=== PATIENT | female | born 1985 | race Caucasian/White ===

== ENCOUNTER 2017-10-17 16:03 | Emergency (ER) | payer SELFPAY ==
--- NOTE | 2017-10-17 16:48 | ER Document Report ---
ED General - General Stated Complaint: POSSIBLE OVERDOSE Time Seen by Provider: 10/17/17 16:46 Notes: 32-year-old female to the emergency department for suicidal ideation and possible overdose. States that she is an alcoholic and needs help. Has been drinking. Decided that it would be easier just to so took a handful of Prozac from her mother. After doing that realize that was stupid. Wants help. Knows that she needs rehab at this time. - HPI Onset: Just prior to arrival - Related Data Allergies/Adverse Reactions: No Known Allergies Allergy (Verified 10/17/17 19:48) Past Medical History - Social History Smoking Status: Current Every Day Smoker Cigarette use (# per day): Yes Frequency of alcohol use: Heavy Drug Abuse: Marijuana Lives with: Family Family History: Reviewed & Not Pertinent Patient has suicidal ideation: Yes Patient has homicidal ideation: No Review of Systems - Review of Systems Constitutional: No symptoms reported EENT: No symptoms reported Cardiovascular: Heart racing Respiratory: No symptoms reported Gastrointestinal: No symptoms reported Genitourinary: No symptoms reported Female Genitourinary: No symptoms reported Musculoskeletal: No symptoms reported Skin: No symptoms reported Hematologic/Lymphatic: No symptoms reported Neurological/Psychological: Depression, Suicidal ideation Physical Exam - Vital signs Vitals: Temp Pulse Resp BP Pulse Ox 98.6 F 79 18 111/81 93 10/17/17 17:02 10/17/17 17:02 10/17/17 17:02 10/17/17 17:02 10/17/17 17:02 Interpretation: Tachycardic - General General appearance: Appears well, Alert - HEENT Head: Normocephalic, Atraumatic Eyes: Normal Pupils: PERRL - Respiratory Respiratory status: No respiratory distress Chest status: Nontender Breath sounds: Normal Chest palpation: Normal - Cardiovascular Rhythm: Tachycardia Heart sounds: Normal auscultation Murmur: No - Abdominal Inspection: Normal Distension: No distension Bowel sounds: Normal Tenderness: Nontender Organomegaly: No organomegaly - Back Back: Normal, Nontender - Extremities General upper extremity: Normal inspection, Nontender, Normal color, Normal ROM , Normal temperature General lower extremity: Normal inspection, Nontender, Normal color, Normal ROM , Normal temperature, Normal weight bearing. No: Regina's sign - Neurological Neuro grossly intact: Yes Cognition: Normal Orientation: AAOx4 [place] Coma Scale Eye Opening: Spontaneous [place] Coma Scale Verbal: Oriented Marlyn Coma Scale Motor: Obeys Commands [place] Coma Scale Total: 15 Speech: Normal Motor strength normal: LUE, RUE, LLE, RLE Sensory: Normal - Psychological Associated symptoms: Normal affect, Normal mood - Skin Skin Temperature: Warm Skin Moisture: Dry Skin Color: Normal Course - Re-evaluation Re-evalutation: 10/17/17 20:41 Get basic psych screening labs at this time. We will give some IV fluids. Will call poison control and reassess. 10/17/17 22:29 Alcohol level in the 300s. Will need to have her clinically sober and be evaluated by mental health in the morning. I have placed patient on a legal hold at this time due to the fact that she admits that alcohol is killing her and she wants help and that she took some pills in an attempt to hurt herself. 10/17/17 22:57 - Vital Signs Vital signs: Temp Pulse Resp BP Pulse Ox 98.3 F 83 16 118/88 H 98 10/17/17 19:40 10/17/17 19:40 10/17/17 19:40 10/17/17 19:40 10/17/17 19:40 - Laboratory Result Diagrams: 10/17/17 06:45 10/17/17 06:45 Laboratory results interpreted by me: 10/17/17 10/17/17 06:45 16:40 AST 87 H Urine Blood SMALL H Salicylates 1.8 L Acetaminophen < 10 L Serum Alcohol 362 H* Discharge - Discharge Clinical Impression: Alcohol intoxication Qualifiers: Complication of substance-induced condition: uncomplicated Qualified Code(s): F10.920 - Alcohol use, unspecified with intoxication, uncomplicated Overdose of antidepressant Qualifiers: Encounter type: initial encounter Injury intent: intentional self-harm Qualified Code(s): T43.202A - Poisoning by unspecified antidepressants, intentional self-harm, initial encounter Condition: Good
[2017-10-17] MEDS ORDERED: RINGERS SOLUTION,LACTATED 1,000 ML IV ONE (17:08)
[2017-10-17] MEDS ORDERED: NICOTINE 21 MG/24 HR PATCH.TD24 TD ONE (17:13)
[2017-10-17 17:15] LABS: ABSOLUTE LYMPHOCYTES (AUTO) 1.4 10^3/uL (0.5-4.7); ABSOLUTE MONOCYTES (AUTO) 0.3 10^3/uL (0.1-1.4); ABSOLUTE NEUT (AUTO) 2.9 10^3/uL (1.7-8.2); BASOPHILS % (AUTO) 0.5 % (0-2); EOSINOPHILS % (AUTO) 0.4 % (0-6); HEMATOCRIT 40.4 % (36.0-47.0); HEMOGLOBIN 13.6 g/dL (12.0-15.5); LYMPHOCYTES % (AUTO) 29.9 % (13-45); MEAN CORPUSCULAR HEMOGLOBIN 31.1 pg (27.0-33.4); MEAN CORPUSCULAR HGB CONC 33.8 g/dL (32.0-36.0); MEAN CORPUSCULAR VOLUME 92 fl (80-97); MONOCYTES % (AUTO) 5.9 % (3-13); PLATELET COUNT 183 10^3/uL (150-450); RED BLOOD COUNT 4.39 10^6/uL (3.72-5.28); RED CELL DISTRIBUTION WIDTH 13.5 % (11.5-14.0); SEGMENTED NEUTROPHILS % (AUTO) 63.3 % (42-78); TOTAL CELLS COUNTED % (AUTO) 100 %; WHITE BLOOD COUNT 4.6 10^3/uL (4.0-10.5)
[2017-10-17 17:33] LABS: ALANINE AMINOTRANSFERASE 41 U/L (9-52); ALBUMIN 4.8 g/dL (3.5-5.0); ALKALINE PHOSPHATASE 62 U/L (38-126); ANION GAP 15 (5-19); ASPARTATE AMINO TRANSFERASE 87 U/L (14-36); BILIRUBIN,DIRECT 0.2 mg/dL (0.0-0.4); BILIRUBIN,TOTAL 0.4 mg/dL (0.2-1.3); BLOOD UREA NITROGEN 10 mg/dL (7-20); CALCIUM 9.4 mg/dL (8.4-10.2); CARBON DIOXIDE 23 mmol/L (22-30); CHLORIDE 106 mmol/L (98-107); GLUCOSE 93 mg/dL (75-110); POTASSIUM 4.4 mmol/L (3.6-5.0); SALICYLATE 1.8 mg/dL (2.0-20.0); SODIUM 144.4 mmol/L (137-145); TOTAL PROTEIN 7.3 g/dL (6.3-8.2)
[2017-10-17 17:44] LABS: APPEARANCE,URINE SLIGHTLY-CLOUDY; BILIRUBIN,URINE NEGATIVE (NEGATIVE); COLOR,URINE STRAW; GLUCOSE, URINE NEGATIVE (NEGATIVE); KETONES,URINE NEGATIVE (NEGATIVE); LEUKOCYTE ESTERASE,URINE NEGATIVE (NEGATIVE); NITRITE,URINE NEGATIVE (NEGATIVE); PROTEIN,URINE NEGATIVE (NEGATIVE); URINE SPECIFIC GRAVITY 1.003; UROBILINOGEN,URINE NEGATIVE mg/dL (<2.0)
[2017-10-17 17:52] LABS: ACETAMINOPHEN < 10 ug/mL (10-30)
[2017-10-17 17:54] LABS: ALCOHOL 362 mg/dL (NONE DETECTED)
[2017-10-17 17:59] LABS: URINE AMPHETAMINES SCREEN NEGATIVE; URINE BARBITURATES SCREEN NEGATIVE; URINE BENZODIAZEPINES SCREEN NEGATIVE; URINE COCAINE SCREEN NEGATIVE; URINE MARIJUANA (THC) SCREEN NEGATIVE; URINE METHADONE SCREEN NEGATIVE; URINE PHENCYCLIDINE SCREEN NEGATIVE
[2017-10-17] MEDS ORDERED: LORAZEPAM 1 MG TABLET PO ONE (20:43)
[2017-10-17] MEDS ORDERED: LORAZEPAM INJ 2 MG/1 ML VIAL IV PRN (23:31)
[2017-10-18 08:16] VITALS: BP 124/98
--- NOTE | 2017-10-18 10:09 | PSYCHOLOGICAL NOTE ---
Psych Note - Psych Note Psych Note: Reason for Consult: Suicidal ideation/ Alcohol Abuse Consent Permissions: Natalee Freeman, mother, 32-year-old female to the emergency department for suicidal ideation and possible overdose. States that she is an alcoholic and needs help. Has been drinking. Decided that it would be easier just to so took a handful of Prozac from her mother. After doing that realize that was stupid. Wants help. Knows that she needs rehab at this time. Patient disclosed that she has been drinking for years now. She disclosed that "it scares me to stop without being watched." She reports that in the past she did have one episode of having seizure however she was still under the influence at the time of the seizure. Patient denies any difficulties during current [facility] ED visit. She disclosed that she had recently moved in with her mother in attempt to stop drinking and for few months it worked however on the last 2 weeks or so "I have been on a matthews drinking wine beer or hard liquor every moment I have been awake." She disclosed "when I go to [place] I start hanging out with a bad crowd and cannot seem to stop myself from drinking. " Patient states that she does have some depression however is unsure if this is from her drinking. Her current plan is to achieve sobriety by staying with her mom, staying away from [place] and other friends that she would normally drink with, and receive substance abuse treatment. Patient denies wanting to hurt herself stating she knew immediately when she took her mother's medication that it was the wrong thing to do; she made herself throw up and called for assistance. Patient states that at the moment she was feeling that she could never achieve sobriety. She denies continued suicidal ideations stating that she just has a goal of becoming sober. Patient's mother, Natalee, disclosed the patient now lives with her. She agrees to be part of the patient's discharge plan and encouraging the patient for continued sobriety. She agrees to take steps in order to ensure the patient does not have access to medications or weapons. Clinician discussed with patient's mother struggles of family members of those trying to obtain sobriety. Patient is alert and orientated to person, place, time and circumstance. Mood is euthymic with congruent affect. Patient does verbalize some nervousness about staying successfully sober. Psychosocial sober sobriety sobriety patient denies suicidal and homicidal ideation. Delusions are absent and behaviors congruent with intact reality based presentation i.e. organized, linear, rational thinking. Eye contact was well-maintained. Conversational speech was within normal rate, tone and prosody. Intellectual abilities appear to be within the average range. Attention and concentration are good. Insight, judgment, impulse control are fair. 303.90 (F10.20) alcohol use disorder; moderate Impression\\plan: Patient is recommended for rescind of IVC and is considered psychiatrically clear. Patient no longer meets IVC criteria per [place] GS 122C. Patient is no longer under the influence of alcohol. Patient denies suicidal and homicidal ideation. Delusions are absent and behaviors congruent with intact reality based presentation i.e. organized, linear, rational thinking. Patient identified plan to achieve sobriety by staying with her mom, staying away from [place] and other friends that she would normally drink with, and receive substance abuse treatment. Patient conducted phone interview with the [facility]; currently there are no beds. Patient received information packet for substance abuse treatment which include both inpatient and outpatient resources. Patient's mother agrees to be part of patient's discharge plan to ensure patient does not have access to medications or weapons and encourages the patient to follow through with substance abuse treatment. Dr. Carbone was consulted and the care and management of this patient; attending physician is in agreement with recommendations and disposition.
--- NOTE | 2017-10-19 11:54 | EKG REPORT ---
SEVERITY:- BORDERLINE ECG - SINUS RHYTHM LOW VOLTAGE WITH RIGHT AXIS DEVIATION : Confirmed by: Isela Santos MD 19-Oct-2017 11:53:24
== END 2017-10-18 11:45 | disposition home or self-care (01) ==
LOC: ER 16:03
DX: F10.920 Alcohol use, unspecified with intoxication, uncomplicated (principal); Y90.8 Blood alcohol level of 240 mg/100 ml or more; T43.202A Poisoning by unspecified antidepressants, intentional self-harm, initial encounter; F17.210 Nicotine dependence, cigarettes, uncomplicated; R00.0 Tachycardia, unspecified
CPT/HCPCS: 93005; 99285; 96365; 36415; 80307 ×4; 84702; 85025; 80053; 81001; 93010; J2060; J7120

== ENCOUNTER 2017-11-18 11:22 | Emergency (ER) | payer SELFPAY ==
[2017-11-18] MEDS ORDERED: IBUPROFEN 800 MG TABLET PO ONE (11:55)
--- NOTE | 2017-11-18 11:58 | ER Document Report ---
HPI - HPI Patient complains to provider of: Arm injury Onset: Other - 2 days ago Onset/Duration: Persistent Quality of pain: Achy Pain Level: 5 Context: Patient states that she fell multiple times while roller skating 2 days ago. Patient complains of continued right arm discomfort. Patient complains of inability to flex her elbow due to pain. Patient states that she has been attempting to manage her pain symptoms by drinking alcohol today. Associated Symptoms: Other - Right arm pain. denies: Fever Exacerbated by: Movement Relieved by: Denies Similar symptoms previously: No Recently seen / treated by doctor: No - ROS ROS below otherwise negative: Yes Systems Reviewed and Negative: Yes All other systems reviewed and negative - CONSTITUTIONAL Constitutional: DENIES: Fever - NEURO Neurology: DENIES: Headache, Weakness - GASTROINTESTINAL Gastrointestinal: DENIES: Nausea - MUSCULOSKELETAL Musculoskeletal: REPORTS: Extremity pain. DENIES: Back Pain - DERM Skin Color: Normal Past Medical History - General Information source: Patient - Social History Smoking Status: Current Every Day Smoker Smoking Education Provided: Yes Frequency of alcohol use: Heavy Drug Abuse: None Occupation: none Lives with: Family Family History: Reviewed & Not Pertinent Neurological Medical History: Reports: Hx Seizures - during withdrawal Renal/ Medical History: Denies: Hx Peritoneal Dialysis Surgical Hx: Negative Vertical Provider Document - CONSTITUTIONAL Agree With Documented VS: Yes Exam Limitations: No Limitations General Appearance: WD/WN, No Apparent Distress Notes: Patient with slightly slurred speech and heavy lidded eyes - INFECTION CONTROL TRAVEL OUTSIDE OF THE [place] IN LAST 30 DAYS: No - HEENT HEENT: Atraumatic, Normocephalic - NECK Neck: Normal Inspection, Supple - RESPIRATORY Respiratory: Breath Sounds Normal, No Respiratory Distress, Chest Non-Tender - CARDIOVASCULAR Cardiovascular: Regular Rate, Regular Rhythm, No Murmur Pulses: Normal: Radial - BACK Back: Normal Inspection - MUSCULOSKELETAL/EXTREMETIES Musculoskeletal/Extremeties: Tender - Tenderness with palpation of entire right upper extremity from upper arm distally. Patient with mild swelling about her right elbow. Patient with decreased flexion to right elbow., Edema - Right elbow - NEURO Level of Consciousness: Awake Motor/Sensory: No Motor Deficit - DERM Integumentary: Warm, Dry, No Rash Course - Re-evaluation Re-evalutation: 11/18/17 11:58 Patient does admit to drinking alcohol today in an attempt to manage her pain symptoms. 11/18/17 13:32 Patient continues hypotensive. Patient repeatedly asking for pain medication. Patient advised that no narcotics would be given at this time given her alcohol intake this morning as well as her hypotension. Patient agreeable to IV fluids at this time. - Diagnostic Test Radiology reviewed: Image reviewed, Reports reviewed Procedures - Immobilization Right Elbow Pre-Proc Neuro Vasc Exam: Normal Immobilizer type: Long arm posterior, Sling Performed by: PCT Post-Proc Neuro Vasc Exam: Normal Alignment checked and good: Yes Discharge - Discharge Clinical Impression: Fall Qualifiers: Encounter type: initial encounter Qualified Code(s): W19.XXXA - Unspecified fall, initial encounter Radial head fracture Qualifiers: Encounter type: initial encounter Fracture type: closed Fracture alignment: nondisplaced Laterality: right Qualified Code(s): S52.124A - Nondisplaced fracture of head of right radius, initial encounter for closed fracture Condition: Stable Disposition: HOME, SELF-CARE Instructions: Ice & Elevation ([facility]), Oral Narcotic Medication ([facility]), Radial Head Fracture ([facility]), Splint Precautions ([facility]), Temporary Sling ([facility]) Additional Instructions: Return immediately for any new or worsening symptoms Followup with your primary care provider, call tomorrow to make a followup appointment Follow-up with orthopedic doctor for further evaluation, call today to make a follow-up appointment Prescriptions: Acetaminophen with Codeine [Acetaminophen-Cod #3 Tablet] 1 each PO Q6 PRN #12 tablet PRN Reason: Forms: Smoking Cessation Education Referrals: [facility] [Provider Group] - Follow up tomorrow
--- NOTE | 2017-11-18 12:40 | RADIOLOGY REPORT (SQ) ---
EXAM DESCRIPTION: HUMERUS RIGHT COMPLETED DATE/TIME: 11/18/2017 12:27 pm REASON FOR STUDY: fall COMPARISON: None. NUMBER OF VIEWS: Two views. TECHNIQUE: Two radiographic images were acquired of the right humerus to include elbow and shoulder in at least one projection. LIMITATIONS: None. FINDINGS: MINERALIZATION: Normal. BONES: No acute fracture or dislocation. No worrisome bone lesions. SOFT TISSUES: No obvious swelling or foreign body. OTHER: No other significant finding. IMPRESSION: NEGATIVE STUDY OF THE RIGHT HUMERUS. NO RADIOGRAPHIC EVIDENCE OF ACUTE INJURY. TECHNICAL DOCUMENTATION: JOB ID: [id number] [employer]- All Rights Reserved Reading location - IP/workstation name: [email or web address]
--- NOTE | 2017-11-18 12:42 | RADIOLOGY REPORT (SQ) ---
EXAM DESCRIPTION: ELBOW RIGHT OVER 2 VIEWS COMPLETED DATE/TIME: 11/18/2017 12:27 pm REASON FOR STUDY: fall COMPARISON: None. NUMBER OF VIEWS: Four views. TECHNIQUE: AP, lateral, and both oblique radiographic images acquired of the right elbow. LIMITATIONS: None. FINDINGS: MINERALIZATION: Normal. BONES: Possible minimal interruption of the cortex of the radial head on 1 of the 2 oblique views. JOINT: Joint effusion. SOFT TISSUES: No soft tissue swelling. No foreign body. OTHER: No other significant finding. IMPRESSION: Joint effusion. Possible faint nondisplaced fracture of the radial head. See above dis cussion. TECHNICAL DOCUMENTATION: JOB ID: [id number] [employer]- All Rights Reserved Reading location - IP/workstation name: [email or web address]
--- NOTE | 2017-11-18 12:43 | RADIOLOGY REPORT (SQ) ---
EXAM DESCRIPTION: FOREARM RIGHT COMPLETED DATE/TIME: 11/18/2017 12:27 pm REASON FOR STUDY: fall COMPARISON: None. NUMBER OF VIEWS: Two views. TECHNIQUE: Two radiographic images acquired of the right forearm, including elbow and wrist in at le ast one projection. LIMITATIONS: None. FINDINGS: MINERALIZATION: Normal. BONES: No acute fracture. No worrisome bone lesions. SOFT TISSUES: No obvious swelling or foreign body. OTHER: No other significant finding. IMPRESSION: NEGATIVE STUDY OF THE RIGHT FOREARM. NO RADIOGRAPHIC EVIDENCE OF ACUTE INJURY. TECHNICAL DOCUMENTATION: JOB ID: [id number] [employer]- All Rights Reserved Reading location - IP/workstation name: [email or web address]
--- NOTE | 2017-11-18 12:43 | RADIOLOGY REPORT (SQ) ---
EXAM DESCRIPTION: HAND RIGHT 3 VIEWS COMPLETED DATE/TIME: 11/18/2017 12:27 pm REASON FOR STUDY: fall COMPARISON: None. EXAM PARAMETERS: NUMBER OF VIEWS: Three views. TECHNIQUE: AP, lateral and oblique radiographic images acquired of the right hand. LIMITATIONS: None. FINDINGS: MINERALIZATION: Normal. BONES: No acute fracture or dislocation. No worrisome bone lesions. JOINTS: No effusions. SOFT TISSUES: No soft tissue swelling. No foreign body. OTHER: No other significant finding. IMPRESSION: NEGATIVE STUDY OF THE RIGHT HAND. NO RADIOGRAPHIC EVIDENCE OF ACUTE INJURY. TECHNICAL DOCUMENTATION: JOB ID: [id number] [employer]- All Rights Reserved Reading location - IP/workstation name: [email or web address]
[2017-11-18] MEDS ORDERED: NORMAL SALINE 1000 ML 1,000 ML IV ONE (13:29)
[2017-11-18] MEDS ORDERED: ACETAMINOPHEN 325 MG TABLET PO ONE (13:31)
[2017-11-18 16:07] VITALS: BP 100/67
== END 2017-11-18 16:07 | disposition home or self-care (01) ==
LOC: ER 11:22
DX: S52.124A Nondisplaced fracture of head of right radius, initial encounter for closed fracture (principal); V00.121A Fall from non-in-line roller-skates, initial encounter; Y93.51 Activity, roller skating (inline) and skateboarding; I95.9 Hypotension, unspecified; F17.210 Nicotine dependence, cigarettes, uncomplicated
CPT/HCPCS: 29105; 99283; 96360; 73080; 73090; 73130; 73060; J7030

== ENCOUNTER 2017-11-24 09:23 | Inpatient (IN) | payer SELFPAY ==
[2017-11-24] MEDS ORDERED: NORMAL SALINE 1000 ML 1,000 ML IV ONE (09:34)
--- NOTE | 2017-11-24 09:43 | ER Document Report ---
ED General - General Stated Complaint: POSSIBLE OVERDOSE Time Seen by Provider: 11/24/17 09:27 TRAVEL OUTSIDE OF THE [place].S. IN LAST 30 DAYS: No - HPI Patient complains to provider of: Tylenol PM, alcohol, marijuana, opiate overdose Notes: 32-year-old female presents altered mental status. Found by her sister this morning to be drinking alcohol, taking prescription pain medicine, smoking marijuana. Sister saw her take a handful of Tylenol PM. Unknown quantity. Her handholds approximately 20 pills. Some fell on the floor. Each pill is 500 mg acetaminophen, 25 mg diphenhydramine. - Related Data Allergies/Adverse Reactions: No Known Allergies Allergy (Verified 11/18/17 11:22) Past Medical History - Social History Smoking Status: Unknown if Ever Smoked Family History: Reviewed & Not Pertinent Neurological Medical History: Reports: Hx Seizures - during withdrawal Renal/ Medical History: Denies: Hx Peritoneal Dialysis Review of Systems - Review of Systems -: Yes ROS unobtainable due to patient's medical condition Physical Exam - Vital signs Vitals: Resp Pulse Ox 25 H 97 11/24/17 09:33 11/24/17 09:33 Interpretation: Tachycardic, Tachypneic - General General appearance: Lethargic - HEENT Head: Normocephalic, Atraumatic Eyes: Normal Pupils: PERRL - Respiratory Respiratory status: No respiratory distress Chest status: Nontender Breath sounds: Normal Chest palpation: Normal - Cardiovascular Rhythm: Tachycardia Heart sounds: Normal auscultation Murmur: No - Abdominal Inspection: Normal Distension: No distension Bowel sounds: Normal Tenderness: Nontender Organomegaly: No organomegaly - Back Back: Normal, Nontender - Extremities General upper extremity: Normal inspection, Nontender, Normal color, Normal ROM , Normal temperature General lower extremity: Normal inspection, Nontender, Normal color, Normal ROM , Normal temperature, Normal weight bearing. No: Regina's sign - Neurological Cognition: Other - Patient somnolent Marlyn Coma Scale Eye Opening: Spontaneous Marlyn Coma Scale Verbal: Incomprehensible Speech: Normal Sensory: Normal - Psychological Associated symptoms: Normal affect, Normal mood - Skin Skin Temperature: Warm Skin Moisture: Dry Skin Color: Normal Course - Re-evaluation Re-evalutation: 11/24/17 09:54 Critically ill female presents after apparent Tylenol PM overdose. Patient has lengthy history of drug abuse. Had recent arm fracture 1 week ago was given some outpatient analgesia. Splint still in place. Patient found by her sister altered this morning intoxicated to the handful Tylenol PM. 35 minutes prior to arrival. Upon presentation the emergency department IV established. NG tube placed. Flush with saline and put to suction. Returns blue pill fragments. These fragments match the Tylenol PM bottle provided by the sister. Patient mildly tachycardic maintaining her airway oxygen saturations 98%. Multiple labs drawn including acetaminophen, salicylates A levels. We are at time 1 hour. Will be rechecked in 3 hours. EKG shows normal QRS., Physical exam very somnolent patient, no clonus. No rigidity. 11/24/17 10:12 Mother arrives bedside. States her daughter has been alcoholic for years and have the last week. Has history of attention seeking behavior no real suicidal ideation. 11/24/17 11:15 Critically ill patient. Initially told Tylenol ingestion for about 35 minutes prior to arrival. Patient's initial acetaminophen level 249. I suspicion patient was drinking alcohol and taking acetaminophen throughout the night. Emergently start N-acetylcysteine therapy. Contact patient for admission ICU, patient will need emergent dialysis. - Vital Signs Vital signs: Temp Pulse Resp BP Pulse Ox 95.6 F L 25 H 110/76 97 11/24/17 11:22 11/24/17 10:01 11/24/17 10:01 11/24/17 10:01 - Laboratory Result Diagrams: 11/24/17 08:55 11/24/17 08:55 Laboratory results interpreted by me: 11/24/17 11/24/17 08:55 08:55 Seg Neuts % (Manual) 36 L Lymphocytes % (Manual) 50 H Abs Lymphs (Manual) 5.9 H Anion Gap 23 H Glucose 168 H Direct Bilirubin 0.5 H AST 59 H Salicylates < 1.0 L Acetaminophen 249 H* Serum Alcohol 471 H* - EKG Interpretation by Me Additional EKG results interpreted by me: 11/24/17 10:19 Sinus tachycardia 120 bpm, normal DC, normal QRS, no ST elevations or depressions. Critical Care Note - Critical Care Note Total time excluding time spent on procedures (mins): 39 Comments: Echocardiogram, bedside management, multiple EKGs, need for dialysis, ICU admission. Discharge - Discharge Clinical Impression: Overdose by acetaminophen Qualifiers: Encounter type: initial encounter Injury intent: intentional self-harm Qualified Code(s): T39.1X2A - Poisoning by 4-Aminophenol derivatives, intentional self-harm, initial encounter Condition: Critical Disposition: ADMITTED INPATIENT Admitting Provider: Hospitalist - [facility] Admitted: ICU
[2017-11-24] MEDS ORDERED: PHARMACY COMMUNICATION ORDER MC NR (09:45)
[2017-11-24 10:16] LABS: ALANINE AMINOTRANSFERASE 44 U/L (9-52); ALKALINE PHOSPHATASE 60 U/L (38-126); ASPARTATE AMINO TRANSFERASE 59 U/L (14-36); BILIRUBIN,DIRECT 0.5 mg/dL (0.0-0.4); BILIRUBIN,TOTAL 0.6 mg/dL (0.2-1.3); BLOOD UREA NITROGEN 14 mg/dL (7-20); CALCIUM 8.6 mg/dL (8.4-10.2); CARBON DIOXIDE 22 mmol/L (22-30); GLUCOSE 168 mg/dL (75-110); POTASSIUM 4.3 mmol/L (3.6-5.0); SALICYLATE < 1.0 mg/dL (2.0-20.0); TOTAL PROTEIN 7.9 g/dL (6.3-8.2)
[2017-11-24 10:20] LABS: CHLORIDE 99 mmol/L (98-107); HEMATOCRIT 43.8 % (36.0-47.0); HEMOGLOBIN 14.8 g/dL (12.0-15.5); MEAN CORPUSCULAR HEMOGLOBIN 31.2 pg (27.0-33.4); MEAN CORPUSCULAR HGB CONC 33.7 g/dL (32.0-36.0); MEAN CORPUSCULAR VOLUME 93 fl (80-97); PLATELET COUNT 303 10^3/uL (150-450); RED BLOOD COUNT 4.72 10^6/uL (3.72-5.28); SODIUM 144.2 mmol/L (137-145); WHITE BLOOD COUNT 9.8 10^3/uL (4.0-10.5)
[2017-11-24 10:35] LABS: ANION GAP 23 (5-19)
[2017-11-24 10:39] LABS: ACETAMINOPHEN 249 ug/mL (10-30); ALCOHOL 471 mg/dL (NONE DETECTED)
--- NOTE | 2017-11-24 10:41 | RADIOLOGY REPORT (SQ) ---
EXAM DESCRIPTION: KUB/ABDOMEN (SINGLE VIEW) COMPLETED DATE/TIME: 11/24/2017 10:21 am REASON FOR STUDY: Check Placement of NG Tube COMPARISON: None. TECHNIQUE: AP view of the lower thorax and upper abdomen LIMITATIONS: None. FINDINGS: NG tube is identified with its tip in the left upper quadrant presumably in the proximal p ortion of the stomach. The a nonspecific intestinal bowel gas pattern is seen. IMPRESSION: NG tube with its tip in the left upper quadrant presumably in the proximal portion of th e stomach. Other findings as noted above TECHNICAL DOCUMENTATION: JOB ID: [id number] [employer]- All Rights Reserved Reading location - IP/workstation name: [email or web address]
[2017-11-24 11:14] LABS: ABSOLUTE LYMPHOCYTES# (MANUAL) 5.9 10^3/uL (0.5-4.7); ABSOLUTE MONOCYTES # (MANUAL) 0.3 10^3/uL (0.1-1.4); ABSOLUTE NEUTROPHILS# (MANUAL) 3.5 10^3/uL (1.7-8.2); BASOPHILS % (MANUAL) 0 % (0-2); EOSINOPHILS % (MANUAL) 1 % (0-6); LYMPHOCYTES % (MANUAL) 50 % (13-45); MONOCYTES % (MANUAL) 3 % (3-13); SEGMENTED NEUTROPHILS % (MAN) 36 % (42-78); TOTAL CELLS COUNTED 100
[2017-11-24 11:15] LABS: PLATELET COMMENT ADEQUATE; POLYCHROMASIA SLIGHT; TOXIC GRANULATION 2+
[2017-11-24] MEDS ORDERED: ACETYLCYSTEINE INJ 6000 MG/30 ML IV ONE ×3 (11:30→15:15)
[2017-11-24] MEDS ORDERED: WATER IV ONE (11:30)
[2017-11-24] MEDS ORDERED: DEXTROSE 5% IV ONE (11:30)
[2017-11-24] MEDS ORDERED: ACETYLCYSTEINE IV ONE (11:30)
[2017-11-24 11:43] LABS: APPEARANCE,URINE CLEAR; BILIRUBIN,URINE NEGATIVE (NEGATIVE); COLOR,URINE YELLOW; GLUCOSE, URINE NEGATIVE (NEGATIVE); KETONES,URINE TRACE mg/dL (NEGATIVE); LEUKOCYTE ESTERASE,URINE NEGATIVE (NEGATIVE); NITRITE,URINE NEGATIVE (NEGATIVE); PROTEIN,URINE NEGATIVE (NEGATIVE); UROBILINOGEN,URINE NEGATIVE mg/dL (<2.0)
[2017-11-24 12:06] LABS: URINE AMPHETAMINES SCREEN NEGATIVE; URINE BARBITURATES SCREEN NEGATIVE; URINE BENZODIAZEPINES SCREEN NEGATIVE; URINE COCAINE SCREEN NEGATIVE; URINE MARIJUANA (THC) SCREEN NEGATIVE; URINE METHADONE SCREEN NEGATIVE; URINE PHENCYCLIDINE SCREEN NEGATIVE
[2017-11-24] MEDS ORDERED: DEXTROSE 50%-WATER 25 GM/50 ML DISP.SYRIN IV PRN ×2 (13:28)
[2017-11-24] MEDS ORDERED: DEXTROSE 40% GEL 15 GM TUBE PO PRN ×2 (13:28)
[2017-11-24] MEDS ORDERED: GLUCAGON,HUMAN RECOMB 1 MG INJ SUBCUT PRN (13:28)
[2017-11-24] MEDS: DEXTROSE 5%-NORMAL SALINE 1,000 ML IV PRN (14:07)
--- NOTE | 2017-11-24 14:17 | PDOC H&P ---
History of Present Illness Admission Date/PCP: 11/24/17 11:36 Patient complains of: Unresponsive History of Present Illness: FRANCIS BECKER is a 32 year old female with history of depression, possible bipolar disorder per her mother who is at bedside. Patient was brought in for unresponsiveness. She lives with her sister. Apparently she had been drinking a lot of alcohol all night and took several Tylenol PM. In the ED she was found to have elevated Tylenol level of 249. LFTs normal so far. It was thought patient must have been taking the Tylenol all night and drinking alcohol. Alcohol level by presentation 471. She was treated with emergently start N-acetylcysteine therapy. Also treated with IV fluid bolus. She was referred for admission. Patient currently unresponsive but appears comfortable , mother at bedside and most of the history obtained from her and the ED physician. Past Medical History Psychiatric Medical History: Reports: Alcohol Dependency, Depression Social History Information Source: Parent Lives with: Family Smoking Status: Current Every Day Smoker Frequency of Alcohol Use: Heavy - Advance Directive Resuscitation Status: Full Code Family History Family History: Bipolar disorder Parental Family History Reviewed: Yes Children Family History Reviewed: No Sibling(s) Family History Reviewed.: Unknown Medication/Allergy Home Medications: Hydroxyzine Pamoate [Vistaril 50 mg Capsule] 50 mg PO QIDP PRN #8 capsule Acetaminophen with Codeine [Acetaminophen-Cod #3 Tablet] 1 each PO Q6 PRN #12 tablet 11/18/17 Allergies/Adverse Reactions: No Known Allergies Allergy (Verified 11/18/17 11:22) Review of Systems ROS unobtainable: Due to mental status Physical Exam Vital Signs: Temp Pulse Resp BP Pulse Ox 96.8 F L 25 H 110/76 97 11/24/17 13:34 11/24/17 10:01 11/24/17 10:01 11/24/17 10:01 GENERAL: Well-developed, no acute distress, unresponsive HEENT: Normocephalic/atraumatic NECK supple, no JVD CARDIOVASCULAR: Tachycardic, normal S1-S2, no appreciable murmur LUNGS: Tachypneic, CTA bilaterally ABDOMEN: Soft, NT, NL bowel sounds EXTREMITIES: No edema, clubbing, cyanosis NEUROLOGICAL: Unresponsive Results Laboratory Results: 11/24/17 11/24/17 08:55 08:55 Seg Neuts % (Manual) 36 L Lymphocytes % (Manual) 50 H Abs Lymphs (Manual) 5.9 H Anion Gap 23 H Glucose 168 H Direct Bilirubin 0.5 H AST 59 H Salicylates < 1.0 L Acetaminophen 249 H* Serum Alcohol 471 H* Impressions: KUB X-Ray 11/24/17 09:38 IMPRESSION: NG tube with its tip in the left upper quadrant presumably in the proximal portion of the stomach. Other findings as noted above Assessment & Plan - Diagnosis (1) Overdose by acetaminophen Qualifiers: Encounter type: initial encounter Injury intent: undetermined intent Qualified Code(s): T39.1X4A - Poisoning by 4-Aminophenol derivatives, undetermined, initial encounter Is this a current diagnosis for this admission?: Yes Plan: Will admit to ICU. Continue Mucomyst. Continue IV fluids with D5NS. I spoke with publications manager Dr. Wright about need for emergent dialysis, but she states N-acetylcysteine therapy is the mainstay of therapy, that dialysis is only indicated if that was not available. Follow serial Tylenol levels, LFTs. Poison control to follow. (2) Alcohol abuse Is this a current diagnosis for this admission?: Yes Plan: We need echo cessation counseling and rehab. (3) Depression Is this a current diagnosis for this admission?: Yes Plan: Patient will need evaluation by mental health when she is awake and acute medical emergency is stabilized. - Inpatient Certification Medical Necessity: Need Close Monitoring Due to Risk of Patient Decompensation, Need For IV Fluids, Need For Continuous Telemetry Monitoring
[2017-11-24] MEDS ORDERED: LORAZEPAM INJ 2 MG/1 ML VIAL IV ONE ×2 (15:02→16:44)
--- NOTE | 2017-11-24 21:47 | EKG REPORT ---
SEVERITY:- BORDERLINE ECG - SINUS TACHYCARDIA LOW VOLTAGE WITH RIGHT AXIS DEVIATION BORDERLINE T ABNORMALITIES, INFERIOR LEADS : Confirmed by: Len Loja 24-Nov-2017 21:46:22
--- NOTE | 2017-11-24 21:47 | EKG REPORT ---
SEVERITY:- BORDERLINE ECG - SINUS TACHYCARDIA LOW VOLTAGE WITH RIGHT AXIS DEVIATION BORDERLINE T ABNORMALITIES, INFERIOR LEADS : Confirmed by: Len Loja 24-Nov-2017 21:46:38
[2017-11-25] MEDS ORDERED: INFLUENZA ADLT QUAD (36MOS+) 2017-18 VAC 0.5 ML SYR IM PRN (00:44)
[2017-11-25 04:13] LABS: INTERNATIONAL RATION (INR) 1.14; PROTHROMBIN TIME 15.4 SEC (11.4-15.4)
[2017-11-25 04:14] LABS: PARTIAL THROMBOPLASTIN TIME 31.5 SEC (23.5-35.8)
[2017-11-25 04:17] LABS: ABSOLUTE LYMPHOCYTES (AUTO) 1.9 10^3/uL (0.5-4.7); ABSOLUTE MONOCYTES (AUTO) 0.3 10^3/uL (0.1-1.4); ABSOLUTE NEUT (AUTO) 9.3 10^3/uL (1.7-8.2); BASOPHILS % (AUTO) 0.2 % (0-2); EOSINOPHILS % (AUTO) 0.1 % (0-6); HEMATOCRIT 35.6 % (36.0-47.0); LYMPHOCYTES % (AUTO) 16.6 % (13-45); MEAN CORPUSCULAR HEMOGLOBIN 31.2 pg (27.0-33.4); MEAN CORPUSCULAR HGB CONC 34.1 g/dL (32.0-36.0); MEAN CORPUSCULAR VOLUME 91 fl (80-97); MONOCYTES % (AUTO) 2.6 % (3-13); PLATELET COUNT 160 10^3/uL (150-450); RED CELL DISTRIBUTION WIDTH 13.8 % (11.5-14.0); SEGMENTED NEUTROPHILS % (AUTO) 80.5 % (42-78); TOTAL CELLS COUNTED % (AUTO) 100 %; WHITE BLOOD COUNT 11.6 10^3/uL (4.0-10.5)
[2017-11-25 04:19] LABS: HEMOGLOBIN 12.2 g/dL (12.0-15.5)
[2017-11-25 04:24] LABS: ALANINE AMINOTRANSFERASE 42 U/L (9-52); ALBUMIN 3.6 g/dL (3.5-5.0); ALKALINE PHOSPHATASE 40 U/L (38-126); ANION GAP 10 (5-19); ASPARTATE AMINO TRANSFERASE 91 U/L (14-36); BILIRUBIN,DIRECT 0.4 mg/dL (0.0-0.4); BILIRUBIN,TOTAL 0.8 mg/dL (0.2-1.3); BLOOD UREA NITROGEN 5 mg/dL (7-20); CALCIUM 7.2 mg/dL (8.4-10.2); CARBON DIOXIDE 24 mmol/L (22-30); CHLORIDE 107 mmol/L (98-107); GLUCOSE 169 mg/dL (75-110); SODIUM 140.6 mmol/L (137-145)
[2017-11-25 04:33] LABS: POTASSIUM 2.9 mmol/L (3.6-5.0)
[2017-11-25] MEDS ORDERED: POTASSIUM CHLORIDE 20 MEQ/15 ML UDCUP NG ONE (05:30)
[2017-11-25] MEDS: DEXTROSE 5%-NORMAL SALINE 1,000 ML IV PRN ×2 (05:32→17:28)
[2017-11-25] MEDS: POTASSIUM CHLORIDE 20 MEQ/50 ML RTU IV SCH ×2 (05:33→07:55)
[2017-11-25] MEDS ORDERED: LORAZEPAM INJ 2 MG/1 ML VIAL IV PRN (08:44)
[2017-11-25] MEDS: NICOTINE 21 MG/24 HR PATCH.TD24 TD SCH (09:15)
[2017-11-25] MEDS: ENOXAPARIN SODIUM INJ 40 MG/0.4 ML DISP.SYRIN SUBCUT SCH (09:17)
--- NOTE | 2017-11-25 11:38 | PDOC PROGRESS REPORT ---
Subjective Progress Note for:: 11/25/17 Subjective:: Now awake. States she was not trying to kill herself. States she was just depressed, getting drunk and being "stupid." States she just recently broke up with a boyfriend. Reports visual hallucinations. Has had a history of alcohol withdrawal in the past with seizure. Denies chest pain or shortness of breath at this time, no palpitations, no fever or chills. Denies cough or hemoptysis. Denies suicidal homicidal ideation. Reason For Visit: TYLENOL OVERDOSE Physical Exam Vital Signs: Temp Pulse Resp BP Pulse Ox 98.5 F 80 14 107/76 97 11/25/17 08:00 11/25/17 08:55 11/25/17 06:40 11/25/17 06:40 11/25/17 06:40 Intake & Output 11/24/17 11/25/17 11/26/17 06:59 06:59 06:59 Intake Total 1303 200 Output Total 1875 360 Balance -572 -160 Weight 54.3 kg GEN: NAD, well-developed, well-nourished CV: RRR, NL S1S2 LUNGS: CTA bilaterally ABDOMEN Soft, NT, +BS EXTERMITIES: No e/c/c NEURO: Alert, oriented 3, non-focal Results Laboratory Results: 11/25/17 03:59 11/25/17 03:59 11/25/17 11/25/17 11/25/17 03:59 03:59 03:59 WBC 11.6 H RBC 3.90 Hgb 12.2 D Hct 35.6 L MCV 91 MCH 31.2 MCHC 34.1 RDW 13.8 Plt Count 160 Seg Neutrophils % 80.5 H Lymphocytes % 16.6 Monocytes % 2.6 L Eosinophils % 0.1 Basophils % 0.2 Absolute Neutrophils 9.3 H Absolute Lymphocytes 1.9 Absolute Monocytes 0.3 Absolute Eosinophils 0.0 Absolute Basophils 0.0 Sodium 140.6 Potassium 2.9 L* D Chloride 107 Carbon Dioxide 24 Anion Gap 10 BUN 5 L Creatinine 0.54 Est GFR ( Amer) > 60 Est GFR (Non-Af Amer) > 60 Glucose 169 H Calcium 7.2 L Magnesium 1.3 L Total Bilirubin 0.8 AST 91 H ALT 42 Alkaline Phosphatase 40 Total Protein 6.0 L Albumin 3.6 Impressions: KUB X-Ray 11/24/17 09:38 IMPRESSION: NG tube with its tip in the left upper quadrant presumably in the proximal portion of the stomach. Other findings as noted above Assessment & Plan - Diagnosis (1) Overdose by acetaminophen Qualifiers: Encounter type: subsequent encounter Injury intent: undetermined intent Qualified Code(s): T39.1X4D - Poisoning by 4-Aminophenol derivatives, undetermined, subsequent encounter Is this a current diagnosis for this admission?: Yes Plan: Will continue to monitor at the ICU for now, as Tylenol levels still elevated at 249. By last night around the heart continue to climb to continue 319, for now trending back down to 249. Continue IV fluids with D5NS and N- acetylcysteine therapy. She is also receiving IV potassium for hypokalemia. Of note is that I spoke with milk of lime slaker Dr. Wright yesterday about need for emergent hemodialysis, but she stated N-acetylcysteine therapy is the mainstay of therapy, that dialysis is only indicated if that was not available. She did not believe patient needed hemodialysis. We will continue to follow serial Tylenol levels, LFTs. Poison control to continue to follow patient's--their recommendations appreciated. (2) Alcohol abuse Is this a current diagnosis for this admission?: Yes Plan: Alcohol cessation counseling done. Patient at high risk for withdrawal. Will start Ativan taper, 2 mg p.o. every 6 hours 4 days, then 1 mg every 6 hours 4 doses then 0.5 mg every 6 hours 4 doses. Patient also to be given Ativan 1 mg IV as needed for withdrawal symptoms. (3) Depression Is this a current diagnosis for this admission?: Yes Plan: Patient with hallucinations. Mental health was consulted from the ED and evaluation pending. Ativan as needed to prevent alcohol withdrawal. (4) Hypokalemia Is this a current diagnosis for this admission?: Yes Plan: Potassium today 2.9. Patient received 40 mEq of KCl p.o. and receiving 40 mEq IV. Will recheck Chem-7 will at 2 PM. Also continue to follow level with a.m. lab. (5) Hypomagnesemia Is this a current diagnosis for this admission?: Yes Plan: Magnesium today 1.3. Will treat with magnesium riders IV 2 g now. Follow-up level in a.m.
[2017-11-25 13:39] LABS: ANION GAP 10 (5-19); BLOOD UREA NITROGEN 4 mg/dL (7-20); CARBON DIOXIDE 21 mmol/L (22-30); CHLORIDE 109 mmol/L (98-107); GLUCOSE 116 mg/dL (75-110); POTASSIUM 3.7 mmol/L (3.6-5.0); SODIUM 139.7 mmol/L (137-145)
[2017-11-25] MEDS: LORAZEPAM 1 MG TABLET PO SCH ×2 (13:39→20:17)
[2017-11-25] MEDS: MAGNESIUM SULFATE/D5W 1 GM/100 ML RTUPB IV SCH ×2 (13:51→15:09)
--- NOTE | 2017-11-25 15:40 | PSYCHOLOGICAL NOTE ---
Psych Note - Psych Note Psych Note: Eval Time 1500 Final Dispo [id number] Contact Permissions: Natalee Freeman [phone] Patient is a 32 year old female. Patient reports she has been heavily drinking since the beginning of September. Patient reports there were several months where she was able to control her drinking but after having a "bad break up" she started drinking heavily again. Patient reports she moved into her sister's house and her sister and sister's girlfriend were also drinkers which led to her drinking even more than before. Patient reports she lost her job and was unemployed, was not able to stay busy and just drank throughout the day. Patient stated she was dealing with alcohol use in 2016 where was diagnosed with Delirium in a hospital, was having hallucinations, and felt "crazy". Patient reports that she has had 2 seizures in the past due to alcohol, and has multiple DUIS. Patient reports she was mandated through the court system to attend [facility] for 30 days as a part of a diversion program. Patient reports she then attended a Substance Intensive Outpatient Treatment program where she learned the skills she would need to maintain sobriety. Patient stated " I know what I need to do its just doing it is the problem". Patient reports that her sister found her unconscious in their home because she drank enough to where she had alcohol poisoning and needed her stomach to be pumped. Patient reports this was not intention, patient reports she does not remember taking Tylenol and states if she did she is certain it was not try to kill herself. Patient states that she received therapy for her depression however it did not help treat her depression. Patient reports that she has been dealing with her depression since she was a teenager. Patient reports that she self medicates with alcohol drinking every day. Patient reports that she is not sure how much she drinks because once she starts drinking shots she just kicked "kicks them back". Patient denies suicidal ideation. Patient stated I do not want to I love my life and I am worried for my liver. Patient reports she is interested in medications that will help reduce her cravings. Collateral information; Natalee Freeamn phone #[phone] Patient's mother reports she is not concerned that patient is suicidal. Patient 's mother reports patient has never made any suicidal comments or gestures. Patient's mother reports that patient is primarily addicted to alcohol. Patient 's mother reports that patient has received treatment in the past has gone to [facility] has gone to a rehab program and has discussed her depression with her on a regular basis. Patient's mother reports that patient mentioned she was depressed since she was a teenager and could benefit from getting therapy. Patient's mother reports that patient will go to stay with her to help her and her sobriety because patient's sister drinks every day as well and she would like to help her daughter in getting treatment. Medication Recommendations: Medication recommendation made by [facility] psychiatric provider Dr. Esme MD includes : Effexor 37.5 twice a day BuSpar 10 mg twice a day Diagnosis: 303.90 ( F10.20) Alcohol use disorder severe Impression/ Plan: Patient is psychiatrically cleared. Patient denied SI/HI. Recommendation for substance abuse outpatient therapy. Patient was provided psycho-education on alcohol use disorder. Patient's mother Natalee Freeman has agreed to have patient stay in her home to assist her toward her goals ( e.g. decreasing alcohol use). Consulted with Dr. Carbone regarding the management and care of patient.
[2017-11-25] MEDS ORDERED: VENLAFAXINE HCL 75 MG TABLET PO ONE (19:00)
[2017-11-25] MEDS ORDERED: BUSPIRONE HCL 10 MG TABLET PO ONE (19:00)
[2017-11-26] MEDS: LORAZEPAM 1 MG TABLET PO SCH ×2 (02:04→08:21)
[2017-11-26 04:14] LABS: ABSOLUTE LYMPHOCYTES (AUTO) 1.8 10^3/uL (0.5-4.7); ABSOLUTE MONOCYTES (AUTO) 0.1 10^3/uL (0.1-1.4); ABSOLUTE NEUT (AUTO) 5.3 10^3/uL (1.7-8.2); BASOPHILS % (AUTO) 0.2 % (0-2); EOSINOPHILS % (AUTO) 0.3 % (0-6); HEMATOCRIT 37.3 % (36.0-47.0); HEMOGLOBIN 12.9 g/dL (12.0-15.5); LYMPHOCYTES % (AUTO) 24.7 % (13-45); MEAN CORPUSCULAR HEMOGLOBIN 31.5 pg (27.0-33.4); MEAN CORPUSCULAR HGB CONC 34.5 g/dL (32.0-36.0); MEAN CORPUSCULAR VOLUME 91 fl (80-97); MONOCYTES % (AUTO) 1.9 % (3-13); PLATELET COUNT 140 10^3/uL (150-450); RED BLOOD COUNT 4.09 10^6/uL (3.72-5.28); RED CELL DISTRIBUTION WIDTH 14.2 % (11.5-14.0); SEGMENTED NEUTROPHILS % (AUTO) 72.9 % (42-78); TOTAL CELLS COUNTED % (AUTO) 100 %; WHITE BLOOD COUNT 7.3 10^3/uL (4.0-10.5)
[2017-11-26 04:26] LABS: ALANINE AMINOTRANSFERASE 39 U/L (9-52); ALBUMIN 3.9 g/dL (3.5-5.0); ALKALINE PHOSPHATASE 53 U/L (38-126); ANION GAP 8 (5-19); ASPARTATE AMINO TRANSFERASE 62 U/L (14-36); BILIRUBIN,DIRECT 0.4 mg/dL (0.0-0.4); BLOOD UREA NITROGEN 5 mg/dL (7-20); CALCIUM 8.8 mg/dL (8.4-10.2); CARBON DIOXIDE 22 mmol/L (22-30); CHLORIDE 109 mmol/L (98-107); GLUCOSE 87 mg/dL (75-110); POTASSIUM 3.5 mmol/L (3.6-5.0); SODIUM 139.3 mmol/L (137-145); TOTAL PROTEIN 6.4 g/dL (6.3-8.2)
[2017-11-26] MEDS: VENLAFAXINE HCL 75 MG TABLET PO SCH ×2 (09:58→18:20)
[2017-11-26] MEDS: BUSPIRONE HCL 10 MG TABLET PO SCH ×2 (10:01→18:20)
[2017-11-26] MEDS: ENOXAPARIN SODIUM INJ 40 MG/0.4 ML DISP.SYRIN SUBCUT SCH (11:03)
[2017-11-26] MEDS: NICOTINE 21 MG/24 HR PATCH.TD24 TD SCH (11:07)
[2017-11-26] MEDS ORDERED: LORAZEPAM 1 MG TABLET PO SCH (13:00)
[2017-11-26 17:17] VITALS: BP 105/76
--- NOTE | 2017-11-26 18:11 | PDOC DISCHARGE SUMMARY ---
General - Admit/Disc Date/PCP Admission Date/Primary Care Provider: 11/24/17 11:36 Discharge Date: 11/26/17 - Discharge Diagnosis (1) Alcohol abuse Is this a current diagnosis for this admission?: Yes Summary: Encourage patient to discontinue alcohol use. (2) Depression Is this a current diagnosis for this admission?: Yes Summary: Patient placed on BuSpar and Effexor by Dr. Ralph Carbone. She states that she will follow-up with psychiatry. (3) Hypokalemia Is this a current diagnosis for this admission?: Yes Summary: Resolving. (4) Hypomagnesemia Is this a current diagnosis for this admission?: Yes Summary: Resolved. (5) Overdose by acetaminophen Is this a current diagnosis for this admission?: Yes Summary: Patient was given an acetylcysteine. Patient's Tylenol level was less than 10 at time of discharge. - Additional Information Resuscitation Status: Full Code Discharge Diet: Regular Discharge Activity: Activity As Tolerated Prescriptions: Buspirone HCl [Buspar 10 mg Tablet] 10 mg PO BID #40 tablet Venlafaxine HCl [Effexor 75 mg Tablet] 37.5 mg PO BID #60 tablet Home Medications: Buspirone HCl [Buspar 10 mg Tablet] 10 mg PO BID #40 tablet 11/26/17 Venlafaxine HCl [Effexor 75 mg Tablet] 37.5 mg PO BID #60 tablet 11/26/17 History of Present Illness Patient complains of: Tylenol overdose and alcohol intoxication History of Present Illness: FRANCIS BECKER is a 32 year old female who presented to the hospital unresponsive. Patient had been out all night drinking alcohol and took several Tylenol PM due to a bad breakup. Hospital Course Hospital Course: Patient is a 32-year-old female that presented to our facility after being found unresponsive. Patient had been out partying with some friends drinking alcohol and then decided to take several Tylenol PM's due to a bad breakup. Patient was admitted to the hospital where she was given an acetylcysteine and IV fluids. Patient was also given electrolyte replacement. Patient was seen by mental health who stated that patient was not suicidal or homicidal. Patient was maintained in ICU and at time of discharge Physical Exam Vital Signs: Temp Pulse Resp BP Pulse Ox 98.4 F 66 12 105/76 98 11/26/17 16:00 11/26/17 16:00 11/26/17 16:00 11/26/17 17:00 11/26/17 17:00 Intake & Output 11/25/17 11/26/17 11/27/17 06:59 06:59 06:59 Intake Total 1303 2711 Output Total 1871 4360 1300 Balance -572 -1649 -1300 Weight 54.3 kg 51.3 kg General appearance: PRESENT: no acute distress, well-developed, well-nourished Head exam: PRESENT: atraumatic, normocephalic Eye exam: PRESENT: conjunctiva pink, EOMI. ABSENT: scleral icterus Ear exam: PRESENT: normal external ear exam Mouth exam: PRESENT: moist, tongue midline Neck exam: ABSENT: carotid bruit, JVD, lymphadenopathy, thyromegaly Respiratory exam: PRESENT: clear to auscultation darin. ABSENT: rales, rhonchi, wheezes Cardiovascular exam: PRESENT: RRR. ABSENT: diastolic murmur, rubs, systolic murmur Pulses: PRESENT: normal dorsalis pedis pul Vascular exam: PRESENT: normal capillary refill GI/Abdominal exam: PRESENT: normal bowel sounds, soft. ABSENT: distended, guarding, mass, organolmegaly, rebound, tenderness Rectal exam: PRESENT: deferred Extremities exam: PRESENT: full ROM. ABSENT: calf tenderness, clubbing, pedal edema Neurological exam: PRESENT: alert, awake, oriented to person, oriented to place , oriented to time, oriented to situation, CN II-XII grossly intact. ABSENT: motor sensory deficit Psychiatric exam: PRESENT: appropriate affect, normal mood. ABSENT: homicidal ideation, suicidal ideation Skin exam: PRESENT: dry, intact, warm. ABSENT: cyanosis, rash Results Laboratory Results: 11/26/17 04:01 11/26/17 04:01 11/26/17 11/26/17 04:01 04:01 WBC 7.3 RBC 4.09 Hgb 12.9 Hct 37.3 MCV 91 MCH 31.5 MCHC 34.5 RDW 14.2 H Plt Count 140 L Seg Neutrophils % 72.9 Lymphocytes % 24.7 Monocytes % 1.9 L Eosinophils % 0.3 Basophils % 0.2 Absolute Neutrophils 5.3 Absolute Lymphocytes 1.8 Absolute Monocytes 0.1 Absolute Eosinophils 0.0 Absolute Basophils 0.0 Sodium 139.3 Potassium 3.5 L Chloride 109 H Carbon Dioxide 22 Anion Gap 8 BUN 5 L Creatinine 0.41 L Est GFR ( Amer) > 60 Est GFR (Non-Af Amer) > 60 Glucose 87 Calcium 8.8 Magnesium 2.0 Total Bilirubin 1.0 AST 62 H ALT 39 Alkaline Phosphatase 53 Total Protein 6.4 Albumin 3.9 Impressions: KUB X-Ray 11/24/17 09:38 IMPRESSION: NG tube with its tip in the left upper quadrant presumably in the proximal portion of the stomach. Other findings as noted above Qualifiers - * PATEINT BEING DISCHARGED WITH ANY OF THE FOLLOWING DIAGNOSIS?: No Plan Time Spent: Greater than 30 Minutes
[2017-11-27] MEDS ORDERED: LORAZEPAM 0.5 MG TABLET PO SCH (13:00)
== END 2017-11-26 18:40 | disposition home or self-care (01) | DRG 918 ==
LOC: ER 09:23 → EH 11:36 → ICU 23:29
PROVIDERS: ADMIT Internal Medicine; ATTEND Internal Medicine
DX: T39.1X4A Poisoning by 4-Aminophenol derivatives, undetermined, initial encounter (principal); T51.0X4A Toxic effect of ethanol, undetermined, initial encounter; F10.229 Alcohol dependence with intoxication, unspecified; Y90.8 Blood alcohol level of 240 mg/100 ml or more; F32.9 Major depressive disorder, single episode, unspecified; E87.6 Hypokalemia; E83.42 Hypomagnesemia; F31.9 Bipolar disorder, unspecified; F17.210 Nicotine dependence, cigarettes, uncomplicated; Z79.899 Other long term (current) drug therapy; Z81.8 Family history of other mental and behavioral disorders
CPT/HCPCS: 36415; 74018; 80048; 80053; 80076; 80307; 81001; 81025; 83735; 84484; 85025; 85610; 85730; 93005; 93010; 96361; 96365; 99291; 99292; J0132; J1650; J2060; J3475; J3480; J3490; J7030; J7060

== ENCOUNTER 2018-05-11 23:59 | Emergency (ER) | payer SELFPAY ==
--- NOTE | 2018-05-12 00:45 | ER Document Report ---
ED General - General Chief Complaint: Psych Problem/ OD/ Aggressive/ hostile Stated Complaint: PSYCH EVAL Time Seen by Provider: 05/12/18 00:27 Notes: Patient is a 32-year-old female presents after being placed on IVC paperwork by [employer]. She is brought here by police. Patient apparently got an argument and wrote a bunch of suicide notes. She then overdose on medications. She took the labels off the pill bottles no further unsure what th She cannot tell me how long ago she did this. She cannot tell me exactly how much she took. Patient tells me that she took Benadryl, Tylenol PM, and drank Listerine. TRAVEL OUTSIDE OF THE [place] IN LAST 30 DAYS: No - Related Data Allergies/Adverse Reactions: No Known Allergies Allergy (Verified 11/18/17 11:22) Past Medical History - Social History Smoking Status: Unknown if Ever Smoked Frequency of alcohol use: unknown Drug Abuse: Other - unknown Family History: Reviewed & Not Pertinent Neurological Medical History: Reports: Hx Seizures - during withdrawal Renal/ Medical History: Denies: Hx Peritoneal Dialysis Psychiatric Medical History: Reports: Hx Depression Review of Systems - Review of Systems Notes: My Normal Review Basic REVIEW OF SYSTEMS: CONSTITUTIONAL : Denies fever, chills, or sweats. Denies recent illness. CARDIOVASCULAR: Denies chest pain. RESPIRATORY: Denies cough, cold, or chest congestion. Denies shortness of breath, difficulty breathing, or wheezing. GASTROINTESTINAL: Denies abdominal pain. Nausea and vomiting. GENITOURINARY: Denies difficulty urinating, painful urination, burning, frequency, or blood in urine. MUSCULOSKELETAL: Denies neck or back pain or joint pain or swelling. SKIN: Denies rash or skin lesions. NEUROLOGICAL: Somnolence since taking the medications. PSYCHIATRIC: Suicide attempt. ALL OTHER SYSTEMS REVIEWED AND NEGATIVE. Physical Exam - Vital signs Vitals: Temp Pulse Resp BP Pulse Ox 98.6 F 105 H 18 104/80 95 05/12/18 00:15 05/12/18 00:15 05/12/18 00:15 05/12/18 00:15 05/12/18 00:15 - Notes Notes: General Appearance: Well nourished, somnolent, cooperative, no acute distress, no obvious discomfort. Vitals: reviewed, See vital signs table. Head: no swelling or tenderness to the head Eyes: PERRL, EOMI, Conjuctiva clear, horizontal nystagmus Mouth: No decreasd moisture Throat: No tonsillar inflammation, No airway obstruction, Neck: Supple, no neck tenderness, No thyromegaly Lungs: No wheezing, No rales, No rhonci, No accessory muscle use, good air exchange bilaterally. Heart: Normal rate, Regular rythm, No murmur, no rub Abdomen: Normal BS, soft, No rigidity, No abdominal tenderness, No guarding, no rebound, no abdominal masses, no organomegaly Extremities: strength 5/5 in all extremities, good pulses in all extremities, no swelling or tenderness in the extremities, no edema. Skin: warm, dry, appropriate color, no rash Neuro: Alert clear, oriented x 2, intoxicated affect, responds appropriately to questions. Course - Re-evaluation Re-evalutation: 05/12/18 04:56 Patient's initial Tylenol level and level 3 hours post is negative. Shops he did not take any Tylenol. She appears more intoxicated with alcohol which would explain the nystagmus. This most likely is from drinking all Listerine and alcohol. She otherwise has been vitally stable. Once her alcohol level is below 100 and she is not showing signs of withdrawl without benzos she will be medically stable for transfer to a mental health facility as long as she continues to be vitally stable and neurologically appropriate. 05/12/18 06:23 Reevaluation patient looks well. She is answering questions appropriately. She is not tachycardic has no tremor. I asked her about her previous alcohol use and she says she sometimes drinks in a daily basis. She has had alcohol withdrawal before. I have ordered [facility] protocol to be started if patient starts having signs of withdrawal. 05/12/18 06:24 - Vital Signs Vital signs: Temp Pulse Resp BP Pulse Ox 98.6 F 105 H 22 H 98/66 L 94 05/12/18 00:15 05/12/18 00:15 05/12/18 05:01 05/12/18 05:00 05/12/18 03:01 - Laboratory Result Diagrams: 05/12/18 01:10 05/12/18 03:46 Laboratory results interpreted by me: 05/12/18 05/12/18 05/12/18 01:10 01:10 03:46 RDW 14.2 H Sodium 153.5 H 152.4 H Chloride 113 H 112 H Acetaminophen < 10 L < 10 L Serum Alcohol 446 H* - EKG Interpretation by Me Additional EKG results interpreted by me: 05/12/18 01:26 EKG is reviewed and interpreted by me. EKG shows sinus rhythm with rate of [address] segment elevation or depression. No ischemic T-wave inversions. UT interval, QRS duration, QTc intervals all within normal range. Old EKG for comparison is from November 24, 2017. Discharge - Discharge Clinical Impression: Alcohol abuse, Suicide attempt Condition: Stable
[2018-05-12] MEDS ORDERED: ONDANSETRON HCL INJ/PF 4 MG/2 ML SDV IV ONE (01:21)
[2018-05-12] MEDS ORDERED: NORMAL SALINE 1000 ML 1,000 ML IV ONE ×2 (01:21→07:33)
[2018-05-12 01:25] LABS: ABSOLUTE EOSINOPHILS # (AUTO) 0.2 10^3/uL (0.0-0.6); ABSOLUTE LYMPHOCYTES (AUTO) 2.4 10^3/uL (0.5-4.7); ABSOLUTE MONOCYTES (AUTO) 0.5 10^3/uL (0.1-1.4); ABSOLUTE NEUT (AUTO) 4.1 10^3/uL (1.7-8.2); BASOPHILS % (AUTO) 0.3 % (0-2); EOSINOPHILS % (AUTO) 2.5 % (0-6); HEMATOCRIT 38.9 % (36.0-47.0); HEMOGLOBIN 13.4 g/dL (12.0-15.5); LYMPHOCYTES % (AUTO) 33.6 % (13-45); MEAN CORPUSCULAR HEMOGLOBIN 31.3 pg (27.0-33.4); MEAN CORPUSCULAR HGB CONC 34.4 g/dL (32.0-36.0); MEAN CORPUSCULAR VOLUME 91 fl (80-97); MONOCYTES % (AUTO) 6.6 % (3-13); PLATELET COUNT 292 10^3/uL (150-450); RED BLOOD COUNT 4.28 10^6/uL (3.72-5.28); RED CELL DISTRIBUTION WIDTH 14.2 % (11.5-14.0); TOTAL CELLS COUNTED % (AUTO) 100 %; WHITE BLOOD COUNT 7.3 10^3/uL (4.0-10.5)
[2018-05-12 01:42] LABS: ALANINE AMINOTRANSFERASE 17 U/L (9-52); ALBUMIN 4.6 g/dL (3.5-5.0); ALKALINE PHOSPHATASE 89 U/L (38-126); ANION GAP 18 (5-19); ASPARTATE AMINO TRANSFERASE 20 U/L (14-36); BILIRUBIN,DIRECT 0.2 mg/dL (0.0-0.4); BILIRUBIN,TOTAL 0.2 mg/dL (0.2-1.3); BLOOD UREA NITROGEN 11 mg/dL (7-20); CALCIUM 9.2 mg/dL (8.4-10.2); CARBON DIOXIDE 23 mmol/L (22-30); CHLORIDE 113 mmol/L (98-107); GLUCOSE 96 mg/dL (75-110); SALICYLATE 3.7 mg/dL (2.0-20.0); SODIUM 153.5 mmol/L (137-145)
[2018-05-12 01:56] LABS: ACETAMINOPHEN < 10 ug/mL (10-30)
[2018-05-12 02:20] LABS: ALCOHOL 446 mg/dL (NONE DETECTED)
[2018-05-12 04:25] LABS: ALANINE AMINOTRANSFERASE 15 U/L (9-52); ALBUMIN 4.5 g/dL (3.5-5.0); ALKALINE PHOSPHATASE 86 U/L (38-126); ANION GAP 18 (5-19); ASPARTATE AMINO TRANSFERASE 20 U/L (14-36); BILIRUBIN,DIRECT 0.2 mg/dL (0.0-0.4); BILIRUBIN,TOTAL 0.2 mg/dL (0.2-1.3); BLOOD UREA NITROGEN 12 mg/dL (7-20); CALCIUM 9.1 mg/dL (8.4-10.2); CARBON DIOXIDE 22 mmol/L (22-30); CHLORIDE 112 mmol/L (98-107); GLUCOSE 96 mg/dL (75-110); SODIUM 152.4 mmol/L (137-145); TOTAL PROTEIN 7.9 g/dL (6.3-8.2)
[2018-05-12 04:37] LABS: ACETAMINOPHEN < 10 ug/mL (10-30)
[2018-05-12] MEDS ORDERED: CLONAZEPAM 1 MG TABLET PO ONE (06:08)
[2018-05-12] MEDS ORDERED: LORAZEPAM INJ 2 MG/1 ML VIAL IV PRN (06:10)
[2018-05-12] MEDS ORDERED: THIAMINE HCL 100 MG in NORMAL SALINE 50 ML IV ONE (06:18)
[2018-05-12] MEDS ORDERED: MULTIVITAMIN TABLET PO ONE (06:19)
[2018-05-12] MEDS ORDERED: FOLIC ACID INJ 5 MG/1 ML 10 ML VIAL IV ONE (06:19)
[2018-05-12] MEDS ORDERED: NICOTINE 21 MG/24 HR PATCH.TD24 TD ONE (06:22)
[2018-05-12] MEDS ORDERED: THIAMINE HCL INJ 200 MG/2 ML VIAL ONE (06:55)
[2018-05-12 08:04] LABS: APPEARANCE,URINE SLIGHTLY-CLOUDY; BILIRUBIN,URINE NEGATIVE (NEGATIVE); COLOR,URINE YELLOW; GLUCOSE, URINE NEGATIVE (NEGATIVE); KETONES,URINE NEGATIVE (NEGATIVE); LEUKOCYTE ESTERASE,URINE NEGATIVE (NEGATIVE); NITRITE,URINE NEGATIVE (NEGATIVE); PROTEIN,URINE NEGATIVE (NEGATIVE); URINE SPECIFIC GRAVITY 1.013; UROBILINOGEN,URINE NEGATIVE mg/dL (<2.0)
[2018-05-12 08:21] LABS: URINE AMPHETAMINES SCREEN NEGATIVE; URINE BARBITURATES SCREEN NEGATIVE; URINE BENZODIAZEPINES SCREEN NEGATIVE; URINE COCAINE SCREEN NEGATIVE; URINE MARIJUANA (THC) SCREEN NEGATIVE; URINE METHADONE SCREEN NEGATIVE; URINE PHENCYCLIDINE SCREEN NEGATIVE
[2018-05-12] MEDS: LORAZEPAM 1 MG TABLET (TAPER DOSING) PO SCH ×3 (08:26→19:22)
--- NOTE | 2018-05-12 08:47 | EKG REPORT ---
SEVERITY:- OTHERWISE NORMAL ECG - SINUS RHYTHM BORDERLINE RIGHT AXIS DEVIATION : Confirmed by: Len Loja 12-May-2018 08:46:46
[2018-05-12] MEDS ORDERED: DEXTROSE 5%-1/4 NORMAL SALINE 1,000 ML IV ONE (11:06)
--- NOTE | 2018-05-12 11:11 | ER Document Report ---
Doctor's Note Notes: 05/12/18 11:08 Rounds: Chart reviewed and patient interviewed. Patient says she did not take Tylenol but did take some Tylenol PM and Benadryl to sleep last night. Acknowledges drinking heavily and does so in binges. EtOH was 446. Tylenol level was nondetectable. Patient's blood pressure continues to run low and she says she normally runs a 120/80. However, she is of small stature and weighs only 50 kg and her BMI is 19.5. She also probably dehydrated based upon so much alcohol causing diuresis. She has had a couple of liters of saline. Her sodium and chloride are both high so I am going to give her a D5 and quarter normal saline at 500 and hour for a liter and will observe her vital signs. Other labs are unremarkable. Vital signs are as mentioned. Patient appears to be medically stable for transfer or discharge. Sachin Ruiz MD
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
[2018-05-12] MEDS: DIVALPROEX SODIUM 250 MG TAB.SR.24H PO SCH (17:54)
[2018-05-12] MEDS: BUSPIRONE HCL 10 MG TABLET PO SCH (17:54)
[2018-05-12] MEDS ORDERED: ACETAMINOPHEN 325 MG TABLET PO ONE (21:40)
[2018-05-13] MEDS: LORAZEPAM 1 MG TABLET (TAPER DOSING) PO SCH (01:26)
[2018-05-13] MEDS ORDERED: NICOTINE 21 MG/24 HR PATCH.TD24 TD ONE (06:14)
--- NOTE | 2018-05-13 09:34 | ER Document Report ---
Doctor's Note Notes: 05/13/18 09:33 Rounds: Chart reviewed and patient interviewed. Patient is complaining of having just awakened and having a cold sweat. Otherwise, has no complaints. Denies pains or headache today although she took some Tylenol last night for headache. She is a patient who came in with a blood alcohol of 446. Today, vital signs are all normal. No new labs to review. Patient appears to be medically stable for transfer or discharge. Sachin Ruiz MD
[2018-05-13] MEDS: DIVALPROEX SODIUM 250 MG TAB.SR.24H PO SCH ×2 (10:11→18:51)
[2018-05-13] MEDS: BUSPIRONE HCL 10 MG TABLET PO SCH ×2 (10:11→18:51)
--- NOTE | 2018-05-13 16:54 | PSYCHOLOGICAL NOTE ---
Psych Note - Psych Note Psych Note: Reason for Consult: overdose Patient had been found by her sister after sister stopped by for a check in following an argument they had about her drinking. Sister found a bunch of suicide letters (17), empty boxes and bottles of medications (many of the labels had been removed), 2 empty cases of beer, 1 empty bottle of wine and 3 large empty bottles of Listerine. She was found in her own vomit and feces. Check-in conducted with patient Patient disclosed she does feel little better and feels a bit foolish. She discloses that she knows she has suicidal ideation and thinks it comes from when she is drinking. She disclosed she has been in a bad relationship for the last few years in the last few days it has gotten significantly worse. She reports that she has moved in to her mother's home however he ended up showing up at her mom's home. She confirms a long history of alcohol abuse and has been into rehab multiple times stating "I know the right answers and what to do I just do not seem to do it." Patient started to disclose feelings of hopelessness. Mood started out euthymic however ended up dysphoric with tearful affect as she started discussing her relationship difficulties. Medication recommendations made by the psychiatric medical provider, Dr. Esme MD, includes: Strictly for seizure prevention Depakote 250MG twice a day for seizure prevention associated with alcohol withdrawal Buspar 10MG twice a day for depression/anxiety/sleep associated with alcohol withdrawal Diagnosis: 303.90 (F10.20) Alcohol Use Disorder, Severe 311 (F32.9) Unspecified Depressive Disorder Impression/Plan: Recommendation to maintain IVC. Medication recommendations have been provided. Patient originally presented euthymic however quickly deteriorated into dysphoric mood with tearful affect. Patient is still feeling the effects of previous intoxication i.e. mood lability. Patient will be reevaluated. Dr. Carbone was consulted and the care and management this patient ; attending physician is agreement with recommendations and disposition.
[2018-05-13] MEDS ORDERED: ACETAMINOPHEN 325 MG TABLET PO ONE (21:49)
[2018-05-14 05:56] VITALS: BP 109/66
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
--- NOTE | 2018-05-14 10:48 | PSYCHOLOGICAL NOTE ---
Psych Note - Psych Note Psych Note: Reason for Consult: overdose Patient had been found by her sister after sister stopped by for a check in following an argument they had about her drinking. Sister found a bunch of suicide letters (17), empty boxes and bottles of medications (many of the labels had been removed), 2 empty cases of beer, 1 empty bottle of wine and 3 large empty bottles of Listerine. She was found in her own vomit and feces. Check-in conducted with patient Patient is noted to have euthymic mood with congruent affect as evidenced by smiling, laughing and engaging with clinician. Patient reflects on her substance abuse and contributes her previous thoughts of wanting to harm herself to both her intoxication, alcohol abuse, and the end of her relationship. She reports that her previous significant other is also an alcoholic. She requests information on continuing to receive therapeutic services, as she is concerned she does not have insurance. She reports wanting to take the medications and continuing to maintain sobriety so she can be correctly identified if she has "regular depression or bipolar." She confirms that bipolar runs in her family and feels that some of her symptoms may be contributed to impulsivity and desiree. Patient reports her sister will be picking her up upon discharge and she plans to continue staying with her mother. Patient denies suicidal ideation and wants continued assistance in sobriety. Medication recommendations made by the psychiatric medical provider, Dr. Esme MD, includes: Strictly for seizure prevention Depakote 250MG twice a day for seizure prevention associated with alcohol withdrawal Buspar 10MG twice a day for depression/anxiety/sleep associated with alcohol withdrawal Diagnosis: 303.90 (F10.20) Alcohol Use Disorder, Severe 311 (F32.9) Unspecified Depressive Disorder R/O bipolar Impression/Plan: Recommendation to rescind IVC and is cleared from acute psychiatric services. Patient denies current suicidal ideation and is presenting with euthymic mood with congruent affect evidenced by smiling, laughing and engaging with clinician. Patient is demonstrating strong insight and forward thinking (i.e. identifying triggers and stressors and problem solving to eliminate in regards to sobriety and toxic relationship). Patient plans to continue living with her mother and identifies a support network of both her mother and sister. Patient is recommended to follow-up with [facility] for her continued outpatient substance abuse and mental health services. Dr. Carbone was consulted and the care and management this patient; attending physician is agreement with recommendations and disposition.
== END 2018-05-14 10:00 | disposition home or self-care (01) ==
LOC: ER 23:59
DX: T50.902A Poisoning by unspecified drugs, medicaments and biological substances, intentional self-harm, initial encounter (principal); F10.10 Alcohol abuse, uncomplicated; Y90.8 Blood alcohol level of 240 mg/100 ml or more; R40.0 Somnolence; R61 Generalized hyperhidrosis
CPT/HCPCS: 93005; 99285; 96361; 96375; 96365; 36415; 80307 ×4; 84703; 85025; 80053; 81001; 93010; J3490 ×3; J3411; J2405; J7030

== ENCOUNTER → 2019-10-04 | Outpatient (CLI) | payer MEDICAID ==
--- NOTE | 2019-10-04 15:28 | RADIOLOGY REPORT (SQ) ---
EXAM DESCRIPTION: U/S [id number] TRNABD 1GES W/ODOP COMPLETED DATE/TIME: 10/04/2019 2:49 pm REASON FOR STUDY: (Z34.81)ENCOUNTER FOR SUPRVSN OF NORMAL , FIRST TRIMESTER Z34.81 ENCOUNT ER FOR SUPRVSN OF NORMAL , FIRST TRIM COMPARISON: None. TECHNIQUE: Transabdominal static and realtime grayscale images acquired of the pelvis. Additional se lected spectral and color Doppler images recorded. All images stored on PACs. bHCG: Not available. CLINICAL DATES: 9 weeks 2 days. LIMITATIONS: None. FINDINGS: FETUS: Single Living intrauterine . ULTRASOUND EGA: 8 weeks 4 days. ULTRASOUND PERFECTO: 05/11/2020 EFW: Not applicable less than 20 weeks. CRL: Visualized. FHR: 169 beats per minute. SURVEY: Too early to assess. AMNIOTIC FLUID: Adequate amount. PLACENTA: Not yet developed due to early gestation. SUBCHORIONIC BLEED: No. SIZE OF BLEED: Not applicable. UTERUS: No masses. No anomalies. CERVICAL LENGTH: 2.3 cm. Closed. RIGHT ADNEXA: Normal ovary with normal vascular flow. No adnexal free fluid. No adnexal masses. LEFT ADNEXA: Normal ovary with normal vascular flow. There is a small simple left ovarian cyst measu red 2.5 x 2.1 cm. No adnexal free fluid. No adnexal masses. FREE FLUID: None. OTHER: No other significant finding. IMPRESSION: LIVING INTRAUTERINE . EGA 8 WEEKS 4 DAYS. Trimester of : First trimester - 0 to 13 weeks. TECHNICAL DOCUMENTATION: JOB ID: [id number]- All Rights Reserved rev-02/06 Reading location - IP/workstation name: [email or web address]
== END ==
LOC: RAD 13:38
PROVIDERS: ATTEND Midwife
DX: O34.81 Maternal care for other abnormalities of pelvic organs, first trimester (principal); N83.202 Unspecified ovarian cyst, left side; Z3A.08 8 weeks gestation of pregnancy
CPT/HCPCS: 76801